=== PATIENT | female | born 1995 | race Two or more races ===

== ENCOUNTER 2019-10-20 01:05 | Emergency (ER) | payer BC ==
[~2019-10-20] VITALS: Ht 162.6 cm; Wt 47.0 kg
--- NOTE | 2019-10-20 01:33 | NUR ---
PT GAVE THIS NUMBER FOR MOM/DAD.
--- NOTE | 2019-10-20 01:37 | NUR ---
pt resting on [address] in place, siderails up x2, call light within reach
--- NOTE | 2019-10-20 02:06 | NUR ---
pt up to rr with standby assist, tolerated transfer well
--- NOTE | 2019-10-20 02:15 | NUR ---
pt now resting on gurney, monitors in place, provided pt with warm blanket, denies further needs, call light within reach
--- NOTE | 2019-10-20 03:30 | NUR ---
pt sitting up on [place], pt repeatedly asking this rn when she gets to go home, also asking to call her boyfriend so he can come pick her up from hospital, pt does not have her cell phone with her or know any phone numbers of her family or friends, states she lives in [place]. this rn attempted to assist pt with looking up family phone number but were unable. pt freqntly removing all monitor wires, this rn replaced monitor wires and pt now resting on gurney, monitors in place, siderails up x2, call light within reach
[2019-10-20 04:54] VITALS: BP 98/47
--- NOTE | 2019-10-20 04:55 | NUR ---
pt restin gwith eyes closed, arouses easily to verbal response, moniotrs in place, call light within reach
== END 2019-10-20 05:19 | disposition home or self-care (01) ==
LOC: ED 03:27
DX: F10.120 Alcohol abuse with intoxication, uncomplicated (principal); Z72.9 Problem related to lifestyle, unspecified; Y90.9 Presence of alcohol in blood, level not specified
CPT/HCPCS: 99283